=== PATIENT | female | born 1970 | race African-American/Black ===

== ENCOUNTER 2022-07-10 20:01 | Inpatient (IN) | payer MEDICAID ==
[~2022-07-10] VITALS: Ht 167.6 cm; Wt 87.3 kg
[2022-07-10 22:57] LABS: BASOPHILS % 0.5 % (0.0-2.0); HEMATOCRIT. 39.7 % (36.0-48.0); HEMOGLOBIN. 13.2 g/dL (12.0-16.0); MEAN CORPUSCULAR HEMOGLOBIN 32.7 pg (28.0-32.0); MEAN CORPUSCULAR VOLUME 98.6 fL (81.0-99.0); MEAN PLATELET VOLUME 7.9 fl (7.4-10.4); MONOCYTES % 7.7 % (2.0-8.0); NEUTROPHILS % 79.8 % (40.0-76.0); PLATELET 175 x1000/uL (130-400); RED BLOOD CELL COUNT 4.03 mill/uL (4.2-5.4); RED CELL DISTRIBUTION WIDTH 15.2 % (11.6-14.6)
[2022-07-10 22:58] LABS: CHLORIDE 105 mEq/L (98-107)
[2022-07-11] MEDS ORDERED: ACETAMINOPHEN 325MG TABLET PO ONE (01:30)
[2022-07-11] MEDS ORDERED: IOHEXOL-350 100 ML BOTTLE ONE ×2 (02:34→04:09)
[2022-07-11] MEDS ORDERED: HEPARIN 25,000 UNITS PREMIX 250 ML IV SCH (05:15)
[2022-07-11] MEDS ORDERED: HEPARIN 80 UNITS/KG BOLUS IV NR (06:00)
[2022-07-11 06:54] LABS: INR 1.3; PROTHROMBIN TIME 13.3 sec (9.6-11.0)
[2022-07-11 07:31] LABS: PARTIAL THROMBOPLASTIN TIME > 200.0 sec (23.4-31.0)
[2022-07-11] MEDS ORDERED: ACETAMINOPHEN 325MG TABLET PO PRN (08:45)
[2022-07-11] MEDS ORDERED: ONDANSETRON HCL 4MG/2ML INJ IV PRN (08:45)
[2022-07-11 12:00] VITALS: BP_SYST 114; BP_SYST 127; BP_DIAS 72; BP_DIAS 78
[2022-07-11] MEDS ORDERED: HEPARIN BOLUS PRN aPTT <36 IV (12:00)
[2022-07-11] MEDS ORDERED: HEPARIN BOLUS PRN aPTT 37-44 IV (12:00)
[2022-07-11 14:00] VITALS: BP 144/78
[2022-07-11 16:00] VITALS: BP 136/68
[2022-07-11] MEDS ORDERED: HYDROCODONE/ACETAMINOPHEN 5/325MG TABLET PO PRN (17:00)
[2022-07-11] MEDS: ENOXAPARIN 80MG/0.8ML SYR SUBCUT SCH ×2 (17:23→21:48)
[2022-07-11] MEDS: FAMOTIDINE 20MG TABLET PO SCH (17:23)
[2022-07-11] MEDS: KETOROLAC 15MG/ML VIAL IV PRN (17:48)
[2022-07-11 18:00] VITALS: BP 140/82
[2022-07-11 20:00] VITALS: BP 119/71
[2022-07-11 22:00] VITALS: BP 117/71
[2022-07-11] MEDS ORDERED: NALOXONE HCL 0.4MG/ML VIAL IV PRN (22:15)
[2022-07-12] VITALS (7 sets, daily range): BP systolic 106–158; BP diastolic 67–84
[2022-07-12] MEDS: MAGNESIUM/ALUMINUM HYDROXIDE/SIMETHICONE 30ML UDC PO PRN (01:01)
[2022-07-12 07:17] LABS: BASOPHILS % 0.6 % (0.0-2.0); HEMATOCRIT. 34.2 % (36.0-48.0); HEMOGLOBIN. 11.8 g/dL (12.0-16.0); LYMPHOCYTES % 22.4 % (20.0-50.0); MEAN CORPUSCULAR HEMOGLOBIN 33.7 pg (28.0-32.0); MEAN CORPUSCULAR VOLUME 97.7 fL (81.0-99.0); MEAN PLATELET VOLUME 7.6 fl (7.4-10.4); MONOCYTES % 10.7 % (2.0-8.0); NEUTROPHILS % 66.3 % (40.0-76.0); PLATELET 158 x1000/uL (130-400); RED CELL DISTRIBUTION WIDTH 14.9 % (11.6-14.6)
[2022-07-12 07:29] LABS: CHLORIDE 106 mEq/L (98-107)
[2022-07-12] MEDS: FAMOTIDINE 20MG TABLET PO SCH (10:20)
[2022-07-12] MEDS: ENOXAPARIN 80MG/0.8ML SYR SUBCUT SCH ×2 (10:20→21:21)
[2022-07-12] MEDS: KETOROLAC 15MG/ML VIAL IV PRN (18:07)
[2022-07-13] MEDS: MAGNESIUM/ALUMINUM HYDROXIDE/SIMETHICONE 30ML UDC PO PRN (00:21)
[2022-07-13 04:00] VITALS: BP 137/86
[2022-07-13 08:00] VITALS: BP 115/78
[2022-07-13] MEDS: FAMOTIDINE 20MG TABLET PO SCH (08:20)
[2022-07-13] MEDS: ENOXAPARIN 80MG/0.8ML SYR SUBCUT SCH (08:21)
[2022-07-13 08:45] VITALS: BP 137/86
[2022-07-13] MEDS ORDERED: ENOX40SY27 SQ (10:43)
[2022-07-13] MEDS ORDERED: ENOXAPARIN 100MG/ML SYR SUBCUT SCH (21:00)
== END 2022-07-13 11:06 | disposition home or self-care (01) | DRG 134 ==
LOC: ER 20:11 → 5EST 07-11 05:16
PROVIDERS: ADMIT Internal Medicine; ATTEND Internal Medicine
DX: I26.99 Other pulmonary embolism without acute cor pulmonale (principal); I27.20 Pulmonary hypertension, unspecified; I82.412 Acute embolism and thrombosis of left femoral vein; I10 Essential (primary) hypertension; I82.432 Acute embolism and thrombosis of left popliteal vein; I07.1 Rheumatic tricuspid insufficiency; F17.210 Nicotine dependence, cigarettes, uncomplicated; Z85.3 Personal history of malignant neoplasm of breast
CPT/HCPCS: 36415; 71045; 71275; 80048; 80053; 83880; 84484; 85025; 85379; 93005; 93306; 99285; J1644; J1650; J1885; Q9967